=== PATIENT | female | born 1960 | race Caucasian/White ===

== ENCOUNTER 2023-12-11 08:25 | Outpatient (OUT) | payer OTHER, SELFPAY ==
--- NOTE | 2023-12-11 09:01 | MM_ITS ---
Patient Name: ARIANNE BRITT MR#: [id number] : 1960 Exam Date: 12/11/2023 Ordering Doctor: DR NICOLE GANT RADIOLOGY REPORT PROCEDURE: MM TOMOSYNTHESIS SCREENING BI COMPARISON: MG MAMM SCREEN BERTA W CAD, 05/19/2019. MG MAMM SCREEN 3D BERTA CAD, 08/11/2022. INDICATIONS: Screening Calculator Name NCI Breast Cancer Risk Assessment Tool 5 Year Breast Cancer Risk 3.60% Lifetime Breast Cancer Risk 14.10% Personal Breast Cancer No Personal Ovarian Cancer No Treatments None Family Cancers Mother with breast cancer at age 60. LOCATION: [facility] BREAST COMPOSITION: The breasts are heterogeneously dense,which may obscure small masses. FINDINGS: DIAGNOSTIC CATEGORY 2--BENIGN FINDING. NO CHANGE FROM COMPARISON. Scattered benign-appearing nodules are present. Scattered benign-appearing calcifications are present. Scattered benign-appearing lymph nodes are present. RIGHT BREAST: No significant suspicious finding. LEFT BREAST: No significant suspicious finding. RECOMMENDATIONS: ROUTINE MAMMOGRAM AND CLINICAL EVALUATION IN 12 MONTHS. PLEASE NOTE: A NORMAL MAMMOGRAM DOES NOT EXCLUDE THE POSSIBILITY OF BREAST CANCER. A CLINICALLY SUSPICIOUS PALPABLE LUMP SHOULD BE BIOPSIED. Dictated by: Yonathan Little MD on 12/11/2023 at 10:52 Approved by: Yonathan Little MD on 12/11/2023 at 10:54
== END 2023-12-11 08:26 | disposition home or self-care (01) ==
LOC: MAMMO 08:25
PROVIDERS: PCP Family Medicine; Visit Provider Family Medicine
DX: Z12.31 Encounter for screening mammogram for malignant neoplasm of breast (principal); Z80.3 Family history of malignant neoplasm of breast
CPT/HCPCS: 77063; 77067

== ENCOUNTER 2025-03-01 09:29 | Outpatient (OUT) | payer MEDICARE, OTHER, SELFPAY ==
--- OUTSIDE RECORDS SUMMARY | 2025-02-17 23:59 | XMS_ITS | Continuity of Care Document ---
Author Organization [facility] Address Unknown Care Team Providers Care Barrel Raiser Name Role Phone NICOLE GANT Primary Care Physician [phone] Encounter FT_FIN [id number] Date(s): 02/17/25 - 02/17/[address] [address]- Discharge Disposition: Home (Routine DC) Attending Physician: Abel Dunaway MD Admitting Physician: Abel Dunaway MD Referring Physician: NONE, XXXX Encounter Type: Outpatient Allergies, Adverse Reactions, Alerts No Known Allergies Assessment and Plan Future Appointments Appointment Date:08/03/2025 01:30:00 PM Scheduled Provider:Abel Dunaway MD Location:[facility]Cardiology Clinic Appointment Type:Cardiology Follow Up (FT) Medications Metoprolol tartrate 50 mg Tab 50 mg = 1 tab(s), Oral, BID, # 60 tab(s), Refills(s) 0, Pharmacy: [facility]/pharmacy #[id number], 176, cm, 10/21/24 11:05:00 EDT, Height/Length Dosing, 75.4, kg, 10/21/24 11:05:00 EDT, Weight Dosing Start Date: 01/26/25 Status: Ordered Quantity: 60.0 Unit: tab(s) Repeat number: 1 Indications: Unspecified atrial fibrillation; Problem List Condition Confirmation Course Effective Dates Status Health St atus Informant Atrial fibrillation (irregular or rapid heart rhythm) Confirmed Active Social History Social History Type Response Smoking Status Never (less than 100 in lifetime) entered on: 02/17/25 Sex Female Sex Representation Female (finding) Patient Care team information Care Team Personnel Name: NICOLE GANT DO Position: FT Physician Member Role: Primary Care Physician Address: [address] [place] [address] Telecom: Care Team Related Persons Name: VIKY JOHNSON Name: VIKY JOHNSON Insurance Providers Guarantor name: Health Plan Information #: 1 Payer: MEDICARE Payer Identifier: [id number] Member Number: [id number] Group Number: [id number] Subscriber Identifier: [id number] Relationship to Subscriber: Self Coverage Type: MEDICARE Coverage Verification Date: 25 Telecom: [phone] Address: [address] [address] [id number] Health Plan Information #: 2 Payer: [employer] Payer Identifier: [id number] Member Number: [id number] Group Number: [id number] Subscriber Identifier: [id number] Relationship to Subscriber: Self Coverage Type: PRIVATE HEALTH INSURANCE Coverage Verification Date: 25 Telecom: Address: [phone] [place] [address]
--- OUTSIDE RECORDS SUMMARY | 2025-02-17 23:59 | XMS_ITS | Continuity of Care Document ---
Author Organization [facility] Address Unknown Care Team Providers Care Gun Striper Name Role Phone NICOLE GANT Primary Care Physician Encounter FT_FIN [id number] Date(s): 02/17/25 - 02/17/[address] [place] [address]- Discharge Disposition: Home (Routine DC) Attending Physician: Abel Dunaway MD Admitting Physician: Abel Dunaway MD Encounter Type: Outpatient Allergies, Adverse Reactions, Alerts No Known Allergies Assessment and Plan Future Appointments Appointment Date:08/03/2025 01:30:00 PM Scheduled Provider:Abel Dunaway MD Location:FT.Cardiology Clinic Appointment Type:Cardiology Follow Up (FT) Medications Metoprolol tartrate 50 mg Tab 50 mg = 1 tab(s), Oral, BID, # 60 tab(s), Refills(s) 0, Pharmacy: [facility]/pharmacy #[id number], 176, cm, 10/21/24 11:05:00 EDT, Height/Length [...] Role: Primary Care Physician Address: [address] [place] [address] Telecom: Care Team Related Persons Name: VIKY JOHNSON Name: VIKY JOHNSON Insurance Providers Guarantor name: Health Plan Information #: 1 Payer: MEDICARE Payer Identifier: [id number] Member Number: [id number] Group Number: [id number] Subscriber Identifier: [id number] Relationship to Subscriber: Self Coverage Type: MEDICARE Coverage Verification Date: 25 Telecom: [phone] Address: [address] [address] [phone] [place], [place] [address] Health Plan Information #: 2 Payer: [employer] Payer Identifier: [id number] Member Number: [id number] Group Number: [id number] Subscriber Identifier: [id number] Relationship to Subscriber: Self Coverage Type: PRIVATE HEALTH INSURANCE Coverage Verification Date: 25 Telecom: Address: [phone] [place] [address]
--- OUTSIDE RECORDS SUMMARY | 2025-03-01 09:35 | XMS_ITS | Encounter Summary ---
Author Organization [employer] Address [facility]-[id number] [address] [place] [address] Care Team Providers Care Ruffling Hemmer Automatic Name Role Phone Homer Youssef DO Primary Care Provider + [phone] Reason for Visit * Reason Comments Med Refill Encounter Details Date Type Department Care Team (Late st Contact Info) Description 09/20/2023 Refill [facility] - Family Medicine [address] [place] [address] Homer Youssef DO [address], [place] [address] Unspecified atrial fibrillation ([facility]) Social History Tobacco Use Types Packs/Day Years Used Date Smoking Tobacco: Never Smokeless Tobacco: Never Alcohol Use Standard Drinks/Week Comments Not Currently 0 (1 standard drink = 0.6 oz pur e alcohol) Social Connection and Isolat ion Panel [NHANES] Answer Date Recorded In a typical week, how many times do you talk on the phone with family, friends, or neighbors? More than three times a week 10/06/2022 How often do you get togethe r with friends or relatives? More than three times a week 10/06/2022 How often do you attend chur ch or adventist services? More than 4 times per year 10/06/2022 Do you belong to any clubs o r organizations such as christianity groups, unions, fraternal or athletic groups, or school groups? Yes 10/06/2022 How often do you attend meet ings of the clubs or organizations you belong to? More than 4 times per year 10/06/2022 Are you , , di vorced, , never , or living with a partner? 10/06/2022 AUDIT-C Answer Date Recorded Q1: How often do you have a drink containing alcohol? Never 10/06/2022 Q2: How many drinks containi ng alcohol do you have on a typical day when you are drinking? Patient does not drink Q3: How often do you have si x or more drinks on one occasion? Never 10/06/2022 Overall Financial Resource Strain (CARDIA) Answe r Date Recorded How hard is it for you to pa y for the very basics like food, housing, medical care, and heating? Not hard at all 10/06/2022 PHQ-2 Answer Date Recorded Total Score 0 10/06/2022 [facility] of Occupat ional Health - Occupational Stress Questionnaire Answer Date Recorded Do you feel stress - tense, restless, nervous, or anxious, or unable to sleep at night because your mind is troubled all the time - these days? Not at all 10/06/2022 Exercise Vital Sign Answer Date Recorde d On average, how many days pe r week do you engage in moderate to strenuous exercise (like a brisk walk)? 4 days 10/06/2022 On average, how many minutes do you engage in exercise at this level? 40 min 10/06/2022 PRAPARE - Transportation Answer Date Re corded In the past 12 months, has l ack of transportation kept you from medical appointments or from getting medications? No 09/27 In the past 12 months, has l ack of transportation kept you from meetings, work, or from getting things needed for daily living? No 10/06/2022 Housing Instability Answer Date Recorde d Are you worried or concerned that in the next two months you may not have stable housing that you own, rent or stay in as a part of a household? No 10/06/2022 Childcare Answer Date Recorded Do problems getting child ca re make it difficult for you to work or study? No 10/06/2022 Employment Answer Date Recorded Do you need help finding a [facility] career center and/or a training program? No 10/06/2022 Hunger Screening Answer Date Recorded Within the past 12 months we worried whether our food would run out before we got money to buy more. Never True 10/06/2022 Within the past 12 months th e food we bought just didn't last and we didn't have money to get more. Never True 10/06/2022 Purpose - Life Answer Date Recorded I have a purpose and direction in my life. Stron gly Agree 10/06/2022 Comments Unknown Sex and Gender Information Value Date Recorded Sex Assigned at Not on file Legal Sex Female 11:48 AM EDT Gender Identity Not on file Sexual Orientation Not on file documented as of this encounter Plan of Treatment Not on file documented as of this encounter Visit Diagnoses Diagnosis Unspecified atrial fibrillation ([facility]) documented in this encounter Additional Health Concerns Assessment Noted Time PHQ-9 Depression Total Score: 0 10/07/19 23 11:08 AM EDT documented as of this encounter Care Teams Ruffling Hemmer Automatic Relationship Specialty Start Date End Date Homer Youssef DO [address], [place] [address] PCP - General Family Medicine 06/26/22 documented as of this encounter
--- OUTSIDE RECORDS SUMMARY | 2025-03-01 09:35 | XMS_ITS | Encounter Summary ---
Author Organization [employer] Address [facility]-[id number] [address] [place] [address] Care Team Providers Care Career Manager Name Role Phone Homer Youssef DO Primary Care Provider + [phone] Reason for Visit * Reason Comments Med Refill Encounter Details Date Type Department Care Team (Late st Contact Info) Description 12/30/2022 Refill [facility] - Family Medicine [address] [place] [address] Homer Youssef DO [address], [place] [address] Unspecified atrial fibrillation ([facility]) Social History Tobacco Use Types Packs/Day Years [...] often do you attend chur ch or church services? More than 4 times per year 10/06/2022 Do you belong to any clubs o r organizations such as zoroastrianism groups, unions, fraternal or athletic groups, or [...] Answer Date Recorded Total Score 0 10/06/2022 [facility] of Occupat ional Health - Occupational Stress [...] Recorded Do you need help finding a [facility] career center and/or a training program? No [...] encounter Visit Diagnoses Diagnosis Unspecified atrial fibrillation ([facility]) documented in this encounter Additional Health Concerns Assessment Noted Time PHQ-9 Depression Total Score: 0 10/07/19 23 11:08 AM EDT documented as of this encounter Care Teams Career Manager Relationship Specialty Start Date End Date Homer Youssef DO [address], [place] [address] PCP - General Family Medicine 06/26/22 documented as of this encounter
--- OUTSIDE RECORDS SUMMARY | 2025-03-01 09:35 | XMS_ITS | Clinical Summary ---
Author Organization [facility] Address [address] [place] [address] Care Team Providers Care Container Coordinator Name Role Phone Unavailable Primary Care Provider Unavailabl e Allergies Active Allergy Reactions Criticality Noted Date Comments Codeine Vomiting High 01/26/2012 Medications MULTI-VITAMIN ORAL Take by mouth once daily. Active Social History Tobacco Use Types Packs/Day Years Used Date Smoking Tobacco: Never Assessed Comments Unknown Sex and Gender Information Value Date Recorded Sex Assigned at Not on file Legal Sex Female 10:16 AM EST Gender Identity Not on file Sexual Orientation Not on file Last Filed Vital Signs Vital Sign Reading Time Taken Comments Blood Pressure 151/85 03/08/2012 8:05 AM EDT Pulse 85 03/08/2012 8:05 AM EDT Temperature 36.2 C (97.1 F) 03/08/2012 8:05 AM EDT Respiratory Rate 20 03/08/2012 8:05 AM EDT Oxygen Saturation 99% 03/08/2012 8:05 AM EDT Inhaled Oxygen Concentration - - Weight 77.8 kg (171 lb 8 oz) 03/08/2012 8:05 AM EDT Height 175.3 cm (5' 9 ) 03/08/2012 8:05 AM EDT Body Mass Index 25.33 03/08/2012 8:05 AM EDT Plan of Treatment Upcoming Encounters Date Type Department Care Team (Late st Contact Info) Description 05/05/2025 12:00 PM EST Office Visit Cardiology [address] [place] [address] Alonso Hodges MD [address] [place] [address] [place] [address] Dx: A fib Health Maintenance Due Date Last Done Comments Anxiety Screening 1977 Depression Screening 1977 HIV Screening 1977 Hepatitis C Screening 1977 DTaP,Tdap,Td Vaccine (1 - Tdap) [address] Colonography 2004 Cologuard (FIT-DNA) 2004 Colonoscopy 2004 Colorectal Cancer Screening 2004 Fecal Occult Blood 2004 Lipid Screening 2004 Sigmoidoscopy 2004 Pneumococcal Vaccine: 50+ (1 of 1 - PCV) 2009 Shingrix Vaccine (1 of 2) 2009 Diabetes Screening 01/25/2015 01/26/2012 Bone Density Screening 2024 Advance Directive Discussion 06/29/2024 Influenza Vaccine (#1) 2025 RSV Vaccine (1 - 1-dose 75+ series) 2034 Procedures Procedure Name Priority Date/Time Associated Diagnosis Comments COMPREHENSIVE METABOLIC PANEL 01/26/2012 10:40 AM EDT from Last 3 Months or Most Recently Relevant to Health Maintenance Results * (ABNORMAL) COMP METABOLIC PANEL (01/26/2012 10:40 AM EDT) Protein, Total 6.8 6.0 - 8.4 g/dL [facility] Albumin 4.2 3.5 - 5.0 g/dL [facility] Calcium 9.0 8.5 - 10.5 mg/dL [facility] Bilirubin, Total 0.4 0 - 1.5 mg/dL [facility] Alkaline Phosphatase 55 40 - 150 U/L [facility] AST 14 7 - 40 U/L [facility] Glucose 93 65 - 100 mg/dL [facility] BUN 10 8 - 25 mg/dL [facility] Creatinine 0.67(L) 0.7 - 1.4 mg/dL [facility] Sodium 139 132 - 148 mmol/L [facility] Potassium 4.1 3.5 - 5.0 mmol/L [facility] Chloride 106 98 - 110 mmol/L [facility] CO2 26 23 - 32 mmol/L [facility] Anion Gap 7 0 - 15 mmol/L [facility] ALT 14 0 - 45 U/L [facility] eGFR- >60 [facility] eGFR-All Other Races >60 . [facility] Comment: eGFR (Estimated GFR) Units of measure: mL/min/1.73 meters squared eGFR is derived from the reexpressed MDRD Study equation using the following parameters: serum creatinine, age, gender and race. The creatinine assay has been calibrated to be traceable to IDMS. An eGFR <60 mL/min/1.73m2 for >3 months is consistent with chronic kidney disease. Refer to KDOQI guidelines for clinical interpretation. 01/26/2012 10:4 0 AM EDT 01/26/2012 10:45 AM EDT Breezy Thakur MD LABORATORY Final Result [facility] [address] [facility] [place] [address] from Last 3 Months or Most Recently Relevant to Health Maintenance Insurance MEDICARE [facility] MEDICARE SUPPLEMENT
--- OUTSIDE RECORDS SUMMARY | 2025-03-01 09:36 | XMS_ITS | Clinical Summary ---
Author Organization [employer] Address [id number] [address] [place] [address] Care Team Providers Care Cpr Ambulance Driver Name Role Phone LatishaHomer hamm Primary Care Provider [phone] Allergies Active Allergy Reactions Criticality Noted Date Comments Codeine Nausea And Vomiting,Vomiting High 012 Medications multivit-min/ferr ous fumarate (MULTI VITAMIN ORAL) Take by mouth daily. Active aspirin 325 mg tablet Take 1 tablet (325 mg total) by mouth. Active metoprolol tartrate (LOPRESSOR) 50 mg tabletIndications :Paroxysmal atrial fibrillation (CMS-HCC) TAKE 1 TABLET (50 MG TOTAL) BY MOUTH IN THE MORNING AND 1 TABLET (50 MG TOTAL) BEFORE BEDTIME 180 tablet 1 5 Active Active Problems Problem Noted Date Diagnosed Date Paroxysmal atrial fibrillation 10/06/2022 Basal cell carcinoma 10/17/2021 Hx of cone biopsy of cervix 08/28/201909/27 Overview (10/06/2022): 2011 concern for cervical mass on US, MRI CKC done at [facility]. Benign endocervical glands with tunnel clusters. No adenocarcinoma. Pelvic congestion syndrome 06/07/201210/06 Overview (10/06/2022): Right pelvic varicosity. Present at US with doppler 2011 Immunizations Immunization Administration Dates Next Due COVID-19 Vaccine, vector-nr, rS-Ad26, PF, 0.5mL 09/03/2020,08/27/2020 Family History Medical History Relation Name Comments Atrial fibrillation Brother 1 Atrial fibrillation Brother 2 Vasculitis Brother 3 autoimmune Coronary artery disease Father Esophageal cancer Father Breast cancer Mother from necr otizing fasciitis at age 89-possible colon CA Relation Name Status Comments Brother 1 Alive Brother 2 Alive Brother 3 Alive Brother 4 Alive Brother 5 Alive Brother 6 Alive Brother 7 Alive Father Mother Sister Alive Social History Tobacco Use Types Packs/Day Years Used Date Smoking Tobacco: Never Smokeless Tobacco: Never Alcohol Use Standard Drinks/Week Comments Not Currently 0 (1 standard drink = 0.6 oz pur e alcohol) [facility] Utilities Answer Date Recorded In the past 12 months has e electric, gas, oil, or water company threatened to shut off services in your home? No 06/09/2024 Social Connection and Isolat ion Panel [NHANES] Answer Date Recorded In a typical week, how many times do you talk on the phone with family, friends, or neighbors? More than three times a week 10/06/2022 How often do you get togethe r with friends or relatives? More than three times a week 10/06/2022 How often do you attend chur ch or protestant services? More than 4 times per year 10/06/2022 Do you belong to any clubs o r organizations such as mandaen groups, unions, fraternal or athletic groups, or [...] 10/06/2022 PHQ-2 Answer Date Recorded Total Score 1 06/09/2024 [facility] [place] of Occupat ional Health - Occupational Stress [...] Recorded Do you need help finding a [facility] career center and/or a training program? [...] Sign Reading Time Taken Comments Blood Pressure 140/74 06/09/2024 9:32 AM EST Pulse 67 06/09/2024 9:32 AM EST Temperature 36.6 C (97.9 F) 06/09/2024 9:32 AM EST Respiratory Rate 18 06/09/2024 9:32 AM EST Oxygen Saturation 99% 06/09/2024 9:32 AM EST Inhaled Oxygen Concentration - - Weight 75.8 kg (167 lb) 06/09/2024 9:32 AM EST Height 176.5 cm (5' 9.5 ) 06/09/2024 9:32 AM EST Body Mass Index 24.31 06/09/2024 9:32 AM EST Plan of Treatment Health Maintenance Due Date Last Done Comments DTaP,Tdap and Td Vaccines (1 - Tdap) 1978 Zoster (Shingles) Vaccine (1 of 2) 1978 COVID-19 Vaccine (3 - season) 2024 09/03/2020, 08/27/2020 Mammogram 12/10/2024 12/11/2023, 08/11/2022 Colonoscopy 02/27/2025 Postponed from 2004 (Not Indicated) Influenza Vaccine 02/27/2025 Adult BMI Screening 06/09/2025 06/09/2024 Depression Screening 06/09/2025 06/09/2024 Fall Risk Screening 06/09/2025 06/09/2024 Tobacco Screening 06/09/2025 06/09/2024 Medical Devices Not on file Procedures Procedure Name Priority Date/Time Associated Diagnosis Comments MAMMOGRAPHY Routine 12/11/2023 11:27 AM EDT from Last 3 Months or Most Recently Relevant to Health Maintenance Results * HM MAMMOGRAPHY (12/11/2023 11:27 AM EDT) Anatomical Region Laterality Modality Other us Homer Youssef DO HEALTH MAINTENANCE Final Res ult from Last 3 Months or Most Recently Relevant to Health Maintenance Insurance [employer] Care Teams Cpr Ambulance Driver Relationship Specialty Start Date End Date Homer Youssef DO [address] [facility], [place] [address] PCP - General Family Medicine 06/26/22
--- OUTSIDE RECORDS SUMMARY | 2025-03-01 09:36 | XMS_ITS | Encounter Summary ---
Author Organization [facility] Address [id number] [address] [place] [address] Care Team Providers Care Computer Graphics Illustrator Name Role Phone Homer Youssef DO Primary Care Provider + [phone] Encounter Details Date Type Department Care Team (Late st Contact Info) Description 12/15/2023 Orders Only [facility] - Family Medicine [address] [place] [id number] Homer Youssef DO [address], [place] [address] Social History Tobacco Use Types Packs/Day Years [...] often do you attend chur ch or orthodox services? More than 4 times per year 10/06/2022 Do you belong to any clubs o r organizations such as jainism groups, unions, fraternal or athletic groups, or [...] Answer Date Recorded Total Score 0 10/06/2022 [facility] of Occupat ional [facility] - Occupational Stress Questionnaire Answer Date Recorded [...] Recorded Do you need help finding a [facility] career center and/or a training program? No [...] on file documented as of this encounter Procedures Procedure Name Priority Date/Time Associated Diagnosis Comments MAMMOGRAPHY Routine 12/11/2023 11:27 AM EDT documented in this encounter Results * HM MAMMOGRAPHY (12/11/2023 11:27 AM EDT) Anatomical Region Laterality Modality Other us Homer Youssef DO HEALTH MAINTENANCE Final Res ult documented in this encounter Visit Diagnoses Not on filedocumented in this encounter Additional Health Concerns Assessment Noted Time PHQ-9 Depression Total Score: 0 10/07/19 23 11:08 AM EDT documented as of this encounter Care Teams Computer Graphics Illustrator Relationship Specialty Start Date End Date Homer Youssef DO [address] [facility] [place] [address] PCP - General Family Medicine 06/26/22 documented as of this encounter
--- OUTSIDE RECORDS SUMMARY | 2025-03-01 09:36 | XMS_ITS | Encounter Summary ---
Author Organization [employer] Sys tem Address [id number] [address] [place] [address] Care Team Providers Care Tomographic Tech Name Role Phone Domonique Homer Cesilia RENNER Primary Care Provider + [phone] Encounter Details Date Type Department Care Team (Late st Contact Info) Description 03/17/2024 Telephone [facility] - Family Medicine [address] [place] [id number] Malik Pham CMA Social History Tobacco Use Types Packs/Day Years [...] often do you attend chur ch or advent services? More than 4 times per year 10/06/2022 Do you belong to any clubs o r organizations such as sabianist groups, unions, fraternal or athletic groups, or [...] Answer Date Recorded Total Score 0 10/06/2022 [facility] Health - Occupational Stress Questionnaire Answer Date [...] Recorded Do you need help finding a [facility] career center and/or a training program? [...] on file documented as of this encounter Miscellaneous Notes * Telephone Encounter - Malik Pham CMA - 03/17/2024 1:21 PM EDT I called pt to book her wellness documented in this encounter Plan of Treatment Not on file documented as of this encounter Visit Diagnoses Not on filedocumented in this encounter Additional Health Concerns Assessment Noted Time PHQ-9 Depression Total Score: 0 10/07/19 23 11:08 AM EDT documented as of this encounter Care Teams Tomographic Tech Relationship Specialty Start Date End Date Homer Youssef DO [address] [place], [facility] [place] [address] PCP - General Family Medicine 06/26/22 documented as of this encounter
--- OUTSIDE RECORDS SUMMARY | 2025-03-01 09:36 | XMS_ITS | Encounter Summary ---
Author Organization [employer] Sys tem Address [id number] [address] [place] [address] Care Team Providers Care Clam Grower Name Role Phone Homer Youssef DO Primary Care Provider [phone] Encounter Details Date Type Department Care Team (Late st Contact Info) Description 08/11/2022 Orders Only [facility] Internal Medicine - Family Medicine [address] [place] [id number] External, Scanning Provider Social History Tobacco Use Types Packs/Day Years Used Date Smoking Tobacco: Never Assessed Childcare Answer Date Recorded Childcare Unknown 12/08/2018 Employment Answer Date Recorded Employment Unknown 12/08/2018 Comments Unknown Sex and Gender Information Value Date Recorded Sex Assigned at Not on file Legal Sex Female 11:48 AM EDT Gender Identity Not on file Sexual Orientation Not on file documented as of this encounter Plan of Treatment Not on file documented as of this encounter Procedures Procedure Name Priority Date/Time Associated Diagnosis Comments MAMMOGRAPHY Routine 08/11/2022 documented in this encounter Results * MAMMOGRAPHY (08/11/2022) Anatomical Region Laterality Modality Other us Scanning Provider External HEALTH MAINTENANCE Fi nal Result documented in this encounter Visit Diagnoses Not on filedocumented in this encounter Care Teams Clam Grower Relationship Specialty Start Date End Date Homer Youssef DO [address], [place] [address] PCP - General Family Medicine 06/26/22 documented as of this encounter
--- NOTE | 2025-03-01 09:40 | MM_ITS ---
Patient Name: ARIANNE BRITT MR#: [id number] : 1960 Exam Date: 03/01/2025 Ordering Doctor: DR NICOLE GANT RADIOLOGY REPORT PROCEDURE: MM TOMOSYNTHESIS SCREENING BI COMPARISON: MM TOMOSYNTHESIS SCREENING BI, 12/11/2023. MG MAMM SCREEN 3D BERTA CAD, 08/11/2022. MG MAMM SCREEN BERTA W CAD, 05/19/2019. MG MAMM BERTA SCRN W CAD DIG, 07/14/2014. INDICATIONS: screening Calculator Name NCI Breast Cancer Risk Assessment Tool 5 Year Breast Cancer Risk 3.70% Lifetime Breast Cancer Risk 13.60% Personal Breast Cancer No Personal Ovarian Cancer No Treatments None Family Cancers Mother with breast cancer at age 60. LOCATION: [facility] BREAST COMPOSITION: The breasts are heterogeneously dense, which may obscure small masses. FINDINGS: RIGHT BREAST: No significant suspicious finding. Benign-appearing calcifications are present. LEFT BREAST: No significant suspicious finding. Benign-appearing calcifications are present. Benign-appearing lymph nodes are noted along the chest wall. DIAGNOSTIC CATEGORY 2--BENIGN FINDING. NO CHANGE FROM COMPARISON. RECOMMENDATIONS: ROUTINE MAMMOGRAM AND CLINICAL EVALUATION IN 12 MONTHS. Dictated by: Raudel Piña MD on 03/01/2025 at 15:38 Approved by: Raudel Piña MD on 03/01/2025 at 15:41
--- OUTSIDE RECORDS SUMMARY | 2025-03-01 10:42 | XMS_ITS | CCD ---
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 Role Phone ALFREDA, DR HOMER Lomas Consulting Unavailable FURLONG, DR HOMER Lomas Attending Unavailable FURLONG, DR HOMER Lomas Admitting Unavailable FURLONG, DR HOMER Lomas Primary Care Unavailable SUPPLY, DR CATHY Rose Consulting Unavailable FURLONG, HOMER Lomas Attending Unavailable FURLONG, HOMER Lomas Referring Unavailable FURLONG, HOMER Lomas Primary Care Unavailable FURLONG, HOMER Lomas Referring Unavailable FURLONG, HOMER Lomas Primary Care Unavailable Furlong Homer RENNER Primary Care Provider HOMER YOUSSEF Primary Care Physician REFERRAL, SELF Referring Unavailable Cunningham, Abel W Admitting Unavailable Cunningham, Abel W Attending Unavailable Haroon, Alla Admitting Unavailable Haroon, Alla Attending Unavailable Haroon, Alla Referring Unavailable Cunningham, Abel W Admitting Unavailable Cunningham, Abel W Attending Unavailable NONE, XXXX Referring Unavailable Cunningham, Abel W Admitting Unavailable Cunningham, Abel W Attending Unavailable Allergies Allergy Classification Reported Allergen(s) Allergy Type Date of Onset Reaction(s) Facility (6 sources) Codeine; Translations: [CODEINE] Drug Allergy 2 Nausea And Vomiting, Vomiting [facility] Medications Current Medications Medication Drug Class(es) Dates Sig (Normalized) Sig (Original) aspirin 325 mg oral capsule (5 sources) Platelet Aggregation Inhibitor, Nonsteroidal Anti-inflammatory Drug Start: 10-21-2024 aspirin 325 mg oral capsule Refills(s) 0 Start Date: 10/21/24 Status: Ordered Repeat number: 1 aspirin 325 mg t ablet Take 1 tablet (325 mg total) by mouth. Active metoprolol tartrate 50 mg oral tablet (7 sources) beta-Adrenergic Kaleb Start: 09-09-2024 take 1 tablet by mouth in the morning, then take 1 tablet by mouth at bedtime metoprolol tartrate (LOPRESSOR) 50 mg tablet Indications: Paroxysmal atrial fibrillation (CMS-HCC) TAKE 1 TABLET (50 MG TOTAL) BY MOUTH IN THE MORNING AND 1 TABLET (50 MG TOTAL) BEFORE BEDTIME 180 tablet 1 09/09/2024 Active Start: 12-30-2022 End: 09-09-2024 take 1 tablet by mouth in the morning, then take 1 tablet by mouth at bedtime metoprolol tartrate (LOPRESSOR) 50 mg tablet Indications: Paroxysmal atrial fibrillation (CMS-HCC) TAKE 1 TABLET (50 MG TOTAL) BY MOUTH IN THE MORNING AND 1 TABLET (50 MG TOTAL) BEFORE BEDTIME 180 tablet 1 03/17/2024 09/09/2024 Discontinued multivit-min/ferrous fumarat e (MULTI VITAMIN ORAL) (4 sources) multivit-min/marcellus khris fumarate (MULTI VITAMIN ORAL) Take by mouth daily. Active multivit-min/marcellus khris fumarate (MULTI VITAMIN ORAL) Take by mouth daily. 0 Active Problems Active Problems Problem Classification Problem Date Documented Date Episodic/Chronic Cardiac dysrhythmias (9 sources) Paroxysmal atrial fibrillation; Translations: [Paroxysmal atrial fibrillation] Onset: 10-06-2022 09-18-2023 Chronic Essential hypertension (1 source) Essential hypertension; Translations: [Essential (primary) hypertension] Onset: 10-21-2024 Chronic Other screening for suspected conditions (not mental disorders or infectious disease) (7 sources) Encounter for screening mammogram for malignant neoplasm of breast; Translations: [Encounter for screening for cardiovascular disorders] Onset: 08-11-2022 Episodic Other skin disorders (2 sources) Nonscarring hair loss, unspecified; Translations: [Nonscarring hair loss, unspecified] Onset: 06-09-2024 Episodic Other skin disorders (1 source) Loss of hair; Translations: [Nonscarring hair loss, unspecified] 06-09-2024 Episodic Residual codes; unclassified (1 source) Family history of malignant neoplasm of breast; Translations: [FAMILY HX MALIG NEOPLASM OF BREAST] Onset: 08-15-2022 Episodic Screening and history of mental health and substance abuse codes (2 sources) Encounter for screening for depression; Translations: [Patient encounter status] Onset: 12-12-2024 12-12-2024 Episodic Unclassified (1 source) Annual Exam Onset: 06-09-2024 Past or Other Problems Problem Classification Problem Date Documented Date Episodic/Chronic Mood disorders (4 sources) Mood disorders Onset: 10-06-2022 Resolved: 06-09-2024 10-06-2022 Other female genital disorders (4 sources) Pelvic congestion syndrome; Translations: [Other specified conditions associated with female genital organs and menstrual cycle] Onset: 06-07-2012 10-06-2022 Episodic Other non-epithelial cancer of skin (4 sources) Basal cell carcinoma of skin; Translations: [Basal cell carcinoma of skin, unspecified] Onset: 10-17-2021 10-06-2022 Episodic Residual codes; unclassified (4 sources) History of cervical conization; Translations: [Other specified postprocedural states] Onset: 08-28-2019 10-06-2022 Episodic Results Test Name Value Interpretation Reference Range Facility Heart and Vascular Office/Cl inic Noteon 02-17-2025 Heart and Vascular Office/Clinic Note Heart and Vascular Office/Clinic Note Chief Complaint 3 month F/U History of Present Illness Patient is a 64 year old female here to follow up after 3 months. Patient states she is doing well. She states she stopped the Bystolic due to going in and out of afib more often. She went back to the metoprolol tartrate BID and sometimes a half tablet if needed for breakthrough afib. She could switch to metoprolol long acting, in the future she could also start Tikosyn. Patient states she feels the bigeminy beats sometimes. Review of Systems PHQ Score Initial Depression Screen Score: 0 SCORE ROS - Provider Constitutional: no fever, no chills, no sweats, no weakness Respiratory: no shortness of breath, no cough Cardiovascular: no chest pain Neuro: no dizziness. no loss of consciousness Physical Exam Vitals & Measurements HR: 61(Peripheral) RR: 18 BP: 123/67 SpO2: 97% HT: 69 in HT: 176 cm WT: 75.2 kg WT: 165.787 lb BMI: 24.28 General: alert, no acute distress Neck: Supple, noJVD nocarotid bruit Cardiovascular: regular rate and rhythm, no murmur normal peripheral perfusion Respiratory: Lungs CTAB, respirations non labored Extremities: no edema left lower extremity. no edema right lower extremity Neurological: oriented x 4, LOC appropriate for age, speech normal Skin: Warm, dry, intact- no rash or concerning lesions Cardiac Diagnostics (02/05/2025 Holter Monitor) FINDINGS: 1. Predominant rhythm was sinus bradycardia/sinus rhythm. 2. Minimum heart rate 44 beats per minute, average heart rate 64 beats per minute, maximum heart rate 88 beats per minute. 3. No patient events with symptoms and baseline. 4. No secondary arrhythmia detected. 5. Total supraventricular ectopics 188 beats representing 0.24% couplets, trigeminy in two runs lasting 3 to 6 beats with a heart rate up to 108. 6. Total ventricular ectopics 124 beats per minute representing 0.16 % bigeminy, quadrigeminy. 7. NM interval 0.18 second, QRS 0.10 second, QT 0.40 second at heart rate of 44 beats per minute. [1] Assessment/Plan Atrial fibrillation (I48.91: Unspecified atrial fibrillation) Patient will continue metoprolol tartrate 50mg BID. She will take an extra 1/2 tablet if needed for breakthrough afib. 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 Patient will get a chest x-ray today, she will have a 24 hour Holter monitor before her next appointment and an EKG at the next appointment. She will follow up in 6 months or sooner if needed. Zaheer Khan personally transcribed this note for on 02/17/25 at 1059. Follow-up No qualifying data available Problem List/Past Medical History Ongoing Atrial fibrillation (irregular or rapid heart rhythm) Historical No qualifying data Medications Metoprolol tartrate 50 mg Tab, 50 mg= 1 tab(s), Oral, BID Allergies No Known Allergies Social History Alcohol Past. Beer, Liquor. 1-2 times per month., 10/18/2024 Substance Abuse Never., 10/18/2024 Tobacco Never (less than 100 in lifetime) Tobacco Use:., 02/17/2025 Family History Atrial fibrillation: Father, Sister and Brother. [1] Holter Monitor; Sy Parsons MD 02/05/2025 13:11 EDT Normal [facility] Comment on above: Result Comment: Elec tronically Signed By: Emelyn CANTU, Abel W\.br\Date and Time Signed: 02/17/25 12:19 EDT\.br\Electronically Co-Signed By: Danika Aranda\.br\Date and Time Co-Signed: 02/17/25 10:59 EDT XR Chest 2 Viewson XR Chest 2 Views Exam Date/Time: 02/17/2025 11:28 EDT Reason for Exam: atrial fibrillation;Other (please specify) Report IMPRESSION: NO EVIDENCE OF ACTIVE CARDIOPULMONARY DISEASE. BORDERLINE CARDIOMEGALY. EXAM: XR Chest 2 Views DATE: 02/17/2025 11:16 AM CLINICAL HISTORY: atrial fibrillation. COMPARISON: None available. TECHNIQUE: Upright PA and lateral radiographs of the chest were obtained. FINDINGS: The heart is borderline enlarged. There is no significant pulmonary infiltrate, pleural effusion, vascular congestion, pneumothorax, or other findings of concern identified. Ordering Provider: Abel Dunaway FINAL REPORT Dictated: 02/17/2025 5:41 pm Kj Urbina MD Signed (Electronic Signature): 02/17/2025 5:41 pm Signed by: Kj Urbina MD Transcribed by: LILLY Technologist: MILO [facility] Holter Monitoron 02-06-2025 Holter Monitor Holter Monitor HOLTER MONITOR DATES OF STUDY: 01/27/2025 to 01/28/2025 INDICATION: Atrial fibrillation TOTAL TEST DURATION: One day FINDINGS: 1. Predominant rhythm was sinus bradycardia/sinus rhythm. 2. Minimum heart rate 44 beats per minute, average heart rate 64 beats per minute, maximum heart rate 88 beats per minute. 3. No patient events with symptoms and baseline. 4. No secondary arrhythmia detected. 5. Total supraventricular ectopics 188 beats representing 0.24% couplets, trigeminy in two runs lasting 3 to 6 beats with a heart rate up to 108. 6. Total ventricular ectopics 124 beats per minute representing 0.16 % bigeminy, quadrigeminy. 7. NM interval 0.18 second, QRS 0.10 second, QT 0.40 second at heart rate of 44 beats per minute. READ BY: angel Naqvi Dictated: 02/05/2025 [id number] Transcribed: 02/06/2025 [facility] Comment on above: Result Comment: Elec tronically Signed By: Todd Parsons MDmoud\.haleigh\Date and Time Signed: 02/06/25 13:30 EDT Heart and Vascular Office/Cl inic Noteon 10-21-2024 Heart and Vascular Office/Clinic Note Heart and Vascular Office/Clinic Note Chief Complaint New patient; AFIB History of Present Illness Marlene Roque, is a 64 years old female patient present to the clinic to [facility] hospital care with vascular to F/U on A.Fib. She remains on aspirin and metoprolol for A.fib management. 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 SOB, palpitation, chest tightness and edema to bilateral lower and upper extremities. Review of Systems Constitutional: fever:no, chills:no, sweats:no, weakness:no, body aches:no, MENDOZA:no Respiratory: chest congestion/tightness: no, shortness of breath: no, cough:no, wheezing:no, orthopnea:no Cardiovascular: chest pain:no, palpitations:no, edema to LEs:no Physical Exam Vitals & Measurements HR: 54(Peripheral) RR: 18 BP: 186/90 SpO2: 99% HT: 69 in HT: 176 cm WT: 166.228 lb WT: 75.4 kg BMI: 24.34 General: Well developed, well nourished, in no acute distress Eyes: not assessed Ears: not assessed Nose: not addressed Mouth: not assessed Neck: not assessed Lungs: clear to auscultation throughout, no wheezing, no rales. No respiratory distress Cardio: regular rate and rhythm, no murmur Abdomen: Soft, non-distended, non-tender Musculoskeletal: No deformity or scoliosis noted. Normal range of motion. Joints normal. No erythema, edema, effusion, or ecchymosis Extremity: No clubbing, cyanosis, edema, or deformity, with normal ROM in both upper and lower bilateral extremities Neurologic: not assessed Skin: not assessed Mental Status: alert and oriented x3, normal mood and affect given age Assessment/Plan 1. Atrial fibrillation (I48.91: Unspecified atrial fibrillation) The patient needs to monitor at home 1 nurse practitioner here and she is seen for evaluation hide which she is known to have. She is taking metoprolol tartrate twice daily and I suggested that we may want switch her medication as this agent is short acting and you need to take it ideally 3 times a day and even then you are not ideally covered. I have suggested we switch her to Bystolic 5 mg at bedtime and have flecainide to take as needed and generated as 100 mg 3 times a day if atrial fibrillation sustained. If the atrial fibrillation continues or she requires cardioversion she may need to go on a maintenance of either flecainide or if that is ineffective we could use Tikosyn. 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 Ordered: EKG Reading [place]fee [id number] Holter Monitor 24 hr 2. Hypertension (I10: Essential (primary) hypertension) Medical management on her blood pressures have been controlled she will monitor herself. DASH diet and exercise regimen encouraged. Portions of this record have been created with voice recognition software. Occasional wrong-word or ???[id number]??? substitutions may have occurred due to the inherent limitations of voice recognition software. Follow-up With When Contact Information Abel Dunaway MD, CAR Within 3 months [address] [place] [address]- Additional Instructions: Patient Education Atrial Fibrillation, [id number]-fz-[id number] Problem List/Past Medical History Ongoing No qualifying data Historical No qualifying data Medications aspirin 325 mg oral capsule Allergies No Known Allergies Social History Alcohol Past. Beer, Liquor. 1-2 times per month., 10/18/2024 Substance Abuse Never., 10/18/2024 Tobacco Never (less than 100 in lifetime) Tobacco Use:., 10/21/2024 Family History Atrial fibrillation: Father, Sister and Brother. Normal [facility] Comment on above: Result Comment: Elec tronically Signed By: Abel Dunaway MD\.br\Date and Time Signed: 10/21/24 11:55 EDT\.br\Electronically Co-Signed By: Alla Rodriguez\.br\Date and Time Co-Signed: 10/21/24 11:37 EDT COMPREHENSIVE METABOLIC PANE Abel 06-09-2024 Albumin [Mass/Vol] 3.8 g/dL Normal 3.2-5.3 [facility] Comment on above: Performed By: #### Mirtha QUEVEDO, 23832-4, TSHR #### [facility] ([id number]) [address], [address] [place] [address] ALP [Catalytic activity/Vol] 77 U/L Normal 39-130 [facility] Comment on above: Performed By: #### Mirtha QUEVEDO 02432-4, TSHR #### [facility] ([id number]) [address], [address] [place] [address] ALT [Catalytic activity/Vol] 21 U/L Normal 0-31 [facility] Comment on above: Performed By: #### Mirtha QUEVEDO, 73400-3, TSHR #### [facility] ([id number]) [address], [address] [place] [address] Anion gap [Moles/Vol] 7 mmol/L Normal 5-15 [facility] Comment on above: Performed By: #### Mirtha QUEVEDO, 70957-9, TSHR #### [facility] ([id number]) [address], [address] [place] [address] AST [Catalytic activity/Vol] 21 U/L Normal 0-41 [facility] Comment on above: Performed By: #### Mirtha QUEVEDO, 45610-9, TSHR #### [facility] ([id number]) [address], [address] [place] [address] Bilirubin [Mass/Vol] 0.7 mg/dL Normal 0.3-1.2 [facility] Comment on above: Performed By: #### Mirtha QUEVEDO, 35941-6, TSHR #### [facility] ([id number]) [address], [address] [place] [address] Calcium [Mass/Vol] 9.1 mg/dL Normal 8.5-10.5 [facility] Comment on above: Performed By: #### Mirtha QUEVEDO 97795-4, TSHR #### [facility] ([id number]) [address], [address] [place] [address] Chloride [Moles/Vol] 105 mmol/L Normal 98-109 [facility] Comment on above: Performed By: #### C EMY, 83769-0, TSHR #### [facility] ([id number]) [address], [address] [place] [address] CO2 [Moles/Vol] 28 mmol/L Normal 22-32 [facility] Comment on above: Performed By: #### C EMY 01201-9, TSHR #### [facility] ([id number]) [address], [address] [place] [address] Creatinine [Mass/Vol] 0.66 mg/dL Normal 0.40-1.00 [facility] Comment on above: Result Comment: METH OD TRACEABLE TO IDMS STANDARD Performed By: #### C EMY, 99238-9, TSHR #### [facility] ([id number]) [address], [facility] [address] [place] [address] eGFR (CKD-EPI) NON-RACE DEPENDENT >90 Normal >59 [facility] Comment on above: Result Comment: Reported eGFR is based on the CKD-EPI 1 equation that does not use a race coefficient. Performed By: #### C EMY 43904-1, TSHR #### [facility] ([id number]) [address], [address] [place] [address] Glucose [Mass/Vol] 81 mg/dL Normal 65-99 [facility] Comment on above: Performed By: #### C EMY 26958-6, TSHR #### [facility] ([id number]) [address] [address] [place] [address] Potassium [Moles/Vol] 4.7 mmol/L Normal 3.5-5.0 [facility] Comment on above: Performed By: #### C Edison QUEVEDO-1, TSHR #### [facility] ([id number]) [address], [facility] [address] [place] [address] Protein [Mass/Vol] 6.7 g/dL Normal 6.0-8.0 [facility] Comment on above: Performed By: #### Mirtha QUEVEDO, 17625-5, TSHR #### [facility] ([id number]) [address], [facility] [address] [place] [address] Sodium [Moles/Vol] 140 mmol/L Normal 134-146 [facility] Comment on above: Performed By: #### Mirtha QUEVEDO, 19134-7, TSHR #### [facility] ([id number]) [address], [facility] [address] [place] [address] Urea nitrogen [Mass/Vol] 14 mg/dL Normal 5-27 [facility] Comment on above: Performed By: #### Mirtha QUEVEDO, 06593-2, TSHR #### [facility] ([id number]) [address], [facility] [address] [place] [address] Lipid 1996 panelon 4 Cholesterol [Mass/Vol] 205 mg/dL High 150-200 [facility] Comment on above: Performed By: #### Mirtha QUEVEDO, 11820-5, TSHR #### [facility] ([id number]) [address] [address] Cholesterol in HDL [Mass/Vol] 46 mg/dL Normal >39 [facility] Comment on above: Result Comment: HDL <40 mg/dL - High Risk HDL > or = 40mg/dL- Desirable HDL >60 mg/dL - Negative Risk Performed By: #### Mirtha QUEVEDO, 78090-9, TSHR #### [facility] ([id number]) [address], [facility] [address] [place] [address] Cholesterol in LDL [Mass/Vol] 129 mg/dL Normal <130 [facility] Comment on above: Result Comment: LDL <100 mg/dL - Desirable LDL >160 mg/dL - High Risk Performed By: #### Mirtha QUEVEDO, 11317-2, TSHR #### [facility] ([id number]) [address] [address] Cholesterol in VLDL [Mass/Vol] 30 mg/dL Normal 0-30 [facility] Comment on above: Performed By: #### Mirtha QUEVEDO, 25164-8, TSHR #### [facility] ([id number]) [address], [address] [address] CHOLESTEROL:HDL 4.5 Normal 1.0-5.0 [facility] Comment on above: Performed By: #### Mirtha QUEVEDO, 75185-5, TSHR #### [facility] ([id number]) [address], [address] [address] Triglyceride [Mass/Vol] 148 mg/dL Normal 27-150 [facility] Comment on above: Performed By: #### Mirtha QUEVEDO, 94874-8, TSHR #### [facility] ([id number]) [address], [address] [address] TSH WITH REFLEXon 06-09-2024 TSH 2.65 uIU/mL Normal 0.49-4.67 [facility] Comment on above: Result Comment: NEW REFERENCE RANGE FOR PEDIATRIC PATIENTS Performed By: #### Mirtha QUEVEDO, 41615-7, TSHR #### [facility] ([id number]) [address], [address] [place] [address] MG MAMM SCREEN 3D BERTA CADon 08-11-2022 MG MAMM SCREEN 3D BERTA CAD Patient: ARIANNE BRITT Exam Date: 08/11/2022 : 1960 Gender:F Ordering : DR HOMER YOUSSEF Admission #: [id number] Family : Order #: [id number] CLICK HERE TO VIEW EXAM RADIOLOGY REPORT PROCEDURE: MAMMOGRAM SCREENING 3D BILATERAL CAD COMPARISON: MG MAMM SCREEN BERTA W CAD, 12/02/2017. MG MAMM SCREEN BERTA W CAD, 05/19/2019. INDICATIONS: Screening mammography Calculator Name NCI Breast Cancer Risk Assessment Tool 5 Year Breast Cancer Risk 3.60% Lifetime Breast Cancer Risk 14.50% Personal Breast Cancer No Personal Ovarian Cancer No Treatments None Family Cancers Mother with breast cancer at age 60. LOCATION: [facility] BREAST COMPOSITION: Heterogeneously dense,which may obscure small masses. FINDINGS: DIAGNOSTIC CATEGORY 2--BENIGN FINDING. NO CHANGE FROM COMPARISON. Scattered benign-appearing nodules are present. Scattered benign-appearing calcifications are present. Scattered benign-appearing lymph nodes are present. RIGHT BREAST: No significant suspicious finding. LEFT BREAST: No significant suspicious finding. Micro clip marker 3 o'clock left breast, stable RECOMMENDATIONS: ROUTINE MAMMOGRAM AND CLINICAL EVALUATION IN 12 MONTHS. PLEASE NOTE: A NORMAL MAMMOGRAM DOES NOT EXCLUDE THE POSSIBILITY OF BREAST CANCER. A CLINICALLY SUSPICIOUS PALPABLE LUMP SHOULD BE BIOPSIED. Dictated by: Cathy Little MD on 08/11/2022 at 13:57 Approved by: Cathy Little MD on 08/11/2022 at 14:08 Normal [facility] COMPREHENSIVE METABOLIC PANE Abel 07-18-2021 Albumin [Mass/Vol] 4.2 g/dL Normal 3.6-5.1 [facility] Comment on above: Performed By: #### 1 5499, 4706 #### [facility] [address], [address] [place] [id number] [employer] In[employer]: Dutch Hi MD Albumin/Globulin [Mass ratio] 1.9 {ratio} Normal 1.0-2.5 [facility] Comment on above: Performed By: #### 1 9656, 3167 #### [facility] [address], [address] [place] [id number] [employer] Instructor: Dutch Hi MD ALP [Catalytic activity/Vol] 51 U/L Normal 37-153 [facility] Comment on above: Performed By: #### 1 0231, 7600 #### [facility] of [address], [address] [place] [address] [employer] Instructor: Dutch Hi MD ALT [Catalytic activity/Vol] 16 U/L Normal 6-29 [facility] Comment on above: Performed By: #### 1 0231, 7600 #### [facility] of [address], [address] [place] [address] [employer] Instructor: Dutch Hi MD AST [Catalytic activity/Vol] 17 U/L Normal 10-35 [facility] Comment on above: Performed By: #### 1 0231, 7600 #### [facility] of [address], [address] [place] [address] [employer] Instructor: Dutch Hi MD Bilirubin [Mass/Vol] 0.6 mg/dL Normal 0.2-1.2 [facility] Comment on above: Performed By: #### 1 0231, 7600 #### [facility] of [address], [address] [place] [address] [employer] Instructor: Dutch Hi MD BUN/CREATININE RATIO NOT APPLICABLE Normal 6-22 [facility] Comment on above: Performed By: #### 1 0231, 7600 #### [facility] of [address], [address] [place] [address] [employer] Instructor: Dutch Hi MD Calcium [Mass/Vol] 9.5 mg/dL Normal 8.6-10.4 [facility] Comment on above: Performed By: #### 1 0231, 7600 #### [facility] of [place] [address] [employer] Instructor: Dutch Hi MD Chloride [Moles/Vol] 105 mmol/L Normal 98-110 [facility] Comment on above: Performed By: #### 1 0231, 7600 #### [facility] of [address], [address] [place] [address] [employer] Instructor: Dutch Hi MD CO2 [Moles/Vol] 28 mmol/L Normal 20-32 [facility] Comment on above: Performed By: #### 1 023, 7600 #### [facility] [place] [address] [employer] Instructor: Dutch Hi MD Creatinine [Mass/Vol] 0.70 mg/dL Normal 0.50-0.99 [facility] Comment on above: Result Comment: For patients >49 years of age, the reference limit for Creatinine is approximately 13% higher for people identified as -[place]kin[place]. Performed By: #### 1 023, 7600 #### [facility] [place] [address] [employer] Hvac R Instructor: Dutch Hi MD eGFR NON-AFR. [facility]ONE[facility] 93 mL/min/1.73m2 Normal > OR = 60 [facility] Comment on above: Performed By: #### 1 230, 7600 #### [facility] [place] [address] [employer] Hvac [employer] Instructor: Dutch Hi MD GFR/1.73 sq M.predicted among blacks MDRD (S/P/Bld) [Vol rate/Area] 108 mL/min/{1.73_m2} Normal > OR = 60 [facility] Comment on above: Performed By: #### 1 023, 7600 #### [facility] [place] [address] [employer] H[employer] Instructor: Dutch Hi MD Globulin (S) [Mass/Vol] 2.2 g/dL Normal 1.9-3.7 [facility] Comment on above: Performed By: #### 1 023, 7600 #### [facility] [place] [address] [employer] Hvac [employer] Instructor: Dutch Hi MD Glucose [Mass/Vol] 87 mg/dL Normal 65-139 [facility] Comment on above: Result Comment: Non-fasting reference interval Performed By: #### 1 023, 7600 #### [facility] [address] [place] [address] [employer] Hvac [employer] Instructor: Dutch Hi MD Potassium [Moles/Vol] 4.0 mmol/L Normal 3.5-5.3 [facility] Comment on above: Performed By: #### 1 0231, 7600 #### [facility] of [address], [address] [place] [address] [employer] Hvac [employer] Instructor: Dutch Hi MD Protein [Mass/Vol] 6.4 g/dL Normal 6.1-8.1 [facility] Comment on above: Performed By: #### 1 0231, 7600 #### [facility] of [place] [address] [employer] Hvac [employer] Instructor: Dutch Hi MD Sodium [Moles/Vol] 141 mmol/L Normal 135-146 [facility] Comment on above: Performed By: #### 1 0231, 7600 #### [facility] of [address], [address] [place] [address] [employer] Hvac [employer] Instructor: Dutch Hi MD Urea nitrogen [Mass/Vol] 13 mg/dL Normal 7-25 [facility] Comment on above: Performed By: #### 1 0231, 7600 #### [facility] [place] [address] [employer] Hvac [employer] Instructor: Dutch Hi MD LIPID PANEL, [facility] 06-30 0 Cholesterol [Mass/Vol] 236 mg/dL High <200 [facility] Comment on above: Order Comment: FASTI NG:NO FASTING: NO Performed By: #### 1 0231, 7600 #### [facility] of [place] [address] [employer] Hvac [employer] Instructor: Dutch Hi MD Cholesterol in HDL [Mass/Vol] 61 mg/dL Normal > OR = 50 [facility] Comment on above: Order Comment: FASTI NG:NO FASTING: NO Performed By: #### 1 0231, 7600 #### [facility] of [address], [address] [place] [address] [employer] Hvac [employer] Instructor: Dutch Hi MD Cholesterol in LDL [Mass/Vol] 156 mg/dL High [facility] Comment on above: Order Comment: FASTI NG:NO FASTING: NO Result Comment: Refe rence range: <100 Desirable range <100 mg/dL for primary prevention; <70 mg/dL for patients with CHD or diabetic patients with > or = 2 CHD risk factors. LDL-C is now calculated using the Isidoro calculation, which is a validated novel method providing better accuracy than the Friedewald equation in the estimation of LDL-C. Kenneth SS et al. CAMILO. 2013;310(19): 1179-8100 (http://education.Fileforce/faq/AEK706) Performed By: #### 1 0231, 7600 #### [facility] [address], [address] [place] [address] [employer] Hvac [employer] Instructor: Dutch Hi MD Cholesterol.total/C holesterol in HDL [Mass ratio] 3.9 {ratio} Normal <5.0 [facility] Comment on above: Order Comment: FASTI NG:NO FASTING: NO Performed By: #### 1 023, 7600 #### [facility] [address], [address] [place] [address] [employer] H[employer] Instructor: Dutch Hi MD NON HDL CHOLESTEROL 175 mg/dL (calc) High <130 [facility] Comment on above: Order Comment: FASTI NG:NO FASTING: NO Result Comment: For patients with diabetes plus 1 major ASCVD risk factor, treating to a non-HDL-C goal of <100 mg/dL (LDL-C of <70 mg/dL) is considered a therapeutic option. Performed By: #### 1 0231, 7600 #### [facility] [address], [address] [place] [address] [employer] H[employer] Instructor: Dutch Hi MD Triglyceride [Mass/Vol] 85 mg/dL Normal <150 [facility] Comment on above: Order Comment: FASTI NG:NO FASTING: NO Performed By: #### 1 023, 7600 #### [facility] [address], [address] [place] [address] [employer] Hvac [employer] Instructor: Dutch Hi MD Vital Signs Date Time Vital Sign Value Performing Clinician Arcelia sneed 10-21-2024 11:05-0400 Diastolic blood pressure 90 mm[Hg] Abel Cunningham [facility] 10-21-2024 11:05-0400 Mean blood pressure 122 mm[Hg] Abel Cunningham [facility] 10-21-2024 11:05-0400 Systolic blood pressure 186 mm[Hg] Abel Cunningham [facility] 10-21-2024 10:53-0400 Blood Pressure Location Abel Cunningham [facility] 10-21-2024 10:53-0400 Diastolic blood pressure 102 mm[Hg] Abel Cunningham [facility] 10-21-2024 10:53-0400 Heart rate 54 /min Abel Cunningham [facility] 10-21-2024 10:53-0400 Respiratory rate 18 /min Abel Cunningham [facility] 10-21-2024 10:53-0400 SaO2% (BldA) [Mass fraction] 99 % Abel Cunningham [facility] 10-21-2024 10:53-0400 Systolic blood pressure 175 mm[Hg] Abel Cunningham [facility] 06-09-2024 09:32-0500 Body height 176.5 cm Smile Work Phone: [facility] 06-09-2024 09:32-0500 Body mass index (BMI) [Ratio] 24.31 kg/m2 [employer] DO [facility] 06-09-2024 09:32-0500 Body temperature 97.9 [degF] Smile Work Phone: [facility] 06-09-2024 09:32-0500 Body weight 75.75 kg Homer Youssef DO [facility] 06-09-2024 09:32-0500 Diastolic blood pressure 74 mm[Hg] Homer Youssef DO Work Phone: [facility] 06-09-2024 09:32-0500 Heart rate 67 /min Homer Youssef DO [facility]: [facility] 06-09-2024 09:32-0500 Respiratory rate 18 /min Homer Youssef DO Work [facility]: [facility] 06-09-2024 09:32-0500 SaO2% (BldA) [Mass fraction] 99 % Homer Youssef DO Work Phone: [facility] 06-09-2024 09:32-0500 Systolic blood pressure 140 mm[Hg] Homer Youssef DO Work Phone: [facility] Encounters Encounter Date Encounter Type Care Provider Facility Start: 02-17-2025 End: 02-17-2025 ambulatory Abel Jaime Parkerle Facility[facility] Start: 01-27-2025 End: 01-27-2025 ambulatory Alla Haroon Facility:[facility] Start: 10-21-2024 End: 10-21-2024 ambulatory SELF REFERRAL Facility:[facility] Start: 10-21-2024 End: 10-21-2024 Patient encounter procedure Abel Dunaway [facility] Start: 09-09-2024 End: 09-09-2024 Refill Homer Youssef DO Work Phone: [facility] Comment on above: Paroxysmal atrial fi brillation ([facility]) Start: 06-09-2024 End: 06-09-2024 ambulatory HOMER YOUSSEF [facility] Start: 06-09-2024 End: 06-09-2024 Patient encounter procedure Homer Youssef DO Work Phone: [facility] Comment on above: Welcome to Medicare preventive visit (Primary Dx); Screening for depression; Screening for heart disease; Hair loss; Paroxysmal atrial fibrillation ([facility] Start: 06-09-2024 End: 06-09-2024 Patient encounter status Homer Youssef DO Work Phone: [facility] Work Phone: Start: 06-09-2024 End: 06-09-2024 ambulatory HOMER Cesilia CARMONANICK [facility] Start: 06-09-2024 Encounter for genera l adult medical examination without abnormal findings HOMER CARMONANICK [facility] Start: 03-17-2024 End: 03-17-2024 Refill [facility]oussef DO [facility] Comment on above: Paroxysmal atrial fi brillation ([facility] Start: 09-18-2023 Refill Homer Cesilia hamm DO Work Phone: [facility] Comment on above: Paroxysmal atrial fi brillation [place] Start: 08-11-2022 End: 08-12-[address] RIVERA Cesilia CARMONAARACELINICK Facility: Procedures Date Procedure Procedure Detail Performing Clinician Start: 06-09-2024 Adult depression scr eening assessment Homer Youssef DO Work Phone: Start: 12-11-2023 Mammography Homer davis DO Work Phone: Start: 10-06-2022 Adult depression scr eening assessment Homer Youssef DO Work Phone: Start: 08-11-2022 Mammography Homer davis DO Work Phone: Plan of Treatment Date Care Activity Detail Author Start: 06-09-2025 Adult BMI Screening Adult BMI Screen ing [facility] Start: 06-09-2025 Depression Screening Depression Scre ening [facility] Start: 06-09-2025 Fall Risk Screening Fall Risk Screen ing [facility] Start: 06-09-2025 Tobacco Screening Tobacco Screening [facility] Start: 02-27-2025 Screening for malign ant neoplasm of colon Colonoscopy [facility] Comment on above: Postponed from 06/10 (Not Indicated) Start: 12-10-2024 Screening for malign ant neoplasm of breast Mammogram [facility] Start: 09-26-2024 Influenza vaccination Influenza Vacc ine [facility] Comment on above: Postponed from 02/27 (Patient Refused) Start: 06-29-2024 Administration of varicella zoster vaccine Zoster (Shingles) Vaccine (1 of 2) [facility] Comment on above: Postponed from 06/10 (Patient Refused) Start: 02-28-2024 COVID-19 Vaccine ( season) COVID-19 Vaccine () [facility] Start: 02-28-2024 COVID-19 Vaccine ( season) COVID-19 Vaccine () [facility] Start: 02-28-2024 Influenza vaccination Influenza Vacc ine [facility] Start: 10-07-2023 Adult BMI Screening Adult BMI Screen ing [facility] Start: 10-07-2023 Depression Screening Depression Scre ening [facility] Start: 10-07-2023 Tobacco Screening Tobacco Screening [facility] Start: 08-11-2023 Screening for malign ant neoplasm of breast Mammogram [facility] Start: 02-27-2023 COVID-19 Vaccine ( season) COVID-19 Vaccine ( season) [facility] Start: 02-27-2023 Influenza vaccination Influenza Vacc ine [facility] Start: 1978 Administration of varicella zoster vaccine Zoster (Shingles) Vaccine (1 of 2) [facility] Start: 1978 DTaP,Tdap and Td Vac cines (1 - Tdap) DTaP,Tdap and Td Vaccines (1 - Tdap) [facility] End: 06-09-2025 Comprehensive metabolic 2000 panel - Serum or Plasma Comprehensive metabolic panel Lab Routine Screening for heart disease 1 Occurrences starting 06/09/2024 until 06/09/2025 [employer] Work Phone: Comment on above: 1 Occurrences starti ng 06/09/2024 until 06/09/2025 End: 06-09-2025 Lipid panel Lipid panel Lab Routine Screening for heart disease 1 Occurrences starting 06/09/2024 until 06/09/2025 [facility] Comment on above: 1 Occurrences starti ng 06/09/2024 until 06/09/2025 End: 06-09-2025 TSH with Reflex TSH with Reflex Lab Routine Hair loss 1 Occurrences starting 06/09/2024 until 06/09/2025 [facility] Comment on above: 1 Occurrences starti ng 06/09/2024 until 06/09/2025 Immunizations Immunization Date Immunization Notes Care Provider June huntley 09-03-2020 COVID-19 Vaccine, vector-nr, rS-Ad26, PF, 0.5mL Homer Furlong DO Work Phone: [facility] 08-27-2020 COVID-19 Vaccine, vector-nr, rS-Ad26, PF, 0.5mL Homer Furlong DO Work Phone: [facility] Payers Date Payer Category Payer Medicare [id number] 2024 Medicare [id number] 2024 Unknown [id number] 2024 Unknown [id number] 2017 Commercial Managed C are - POS [employer] [id number] 2017 Private Health Insurance JAYJAY RO POS II [id number] 2017-Present [phone] [address] [place] [address] [id number] 1959 Private Health Insurance [id number] 1959 Unknown [id number] 1959 Unknown [id number] 1959 Unknown [id number] 1959 Unknown [id number] 1959 Unknown [id number] 1959 Unknown [id number] 1959 Unknown [id number] Social History Date Type Detail Facility Start: 10-06-2022 End: 10-21-2024 Tobacco smoking status INIS Never smoked tobacco [facility] Start: 10-06-2022 Tobacco use and exposure Smoke less tobacco non-user [facility] Start: 10-06-2022 End: 06-09-2024 Alcohol intake Ex-drinker (finding) [facility] Start: 10-06-2022 End: 06-09-2024 History of Social function [facility] Start: 10-06-2022 End: 06-09-2024 Social connection and isolation panel [facility] Do you belong to any clubs or organizations such as anabaptism groups, unions, fraternal or athletic groups, or school groups? Yes [facility] Are you now , , , , never or living with a partner? [facility] How often to you hav e a drink containing alcohol? Never [facility] How many standard dr inks containing alcohol do you have on a typical day? Patient does not drink [facility] Do you feel stress - tense, restless, nervous, or anxious, or unable to sleep at night because your mind is troubled all the time - these days [OSQ] Not at all [facility] Start: 1960 Sex Assigned At Not on file [facility] Has the [employer] threatened to shut off services in your home in past 12Mo No [facility] Start: 02-01-2015 Sex Female (finding) [facility] Sexual Orientation [facility] Functional Status Date Assessment Result Facility 10-21-2024 Functional Status N/A [facility] Clinical Notes 09-18-2023 to 10-21-2024 Homer Carmonaryan, DO - 06/09/2024 9:30 AM ESTTelephone Encounter - Homer Carmonaryan, DO - 03/17/2024 12:44 AM EDTTelephone Encounter - Homer Youssef, DO - 03/17/2024 12:44 AM EDT Note Date & Type Note Facility 10-21-2024 Hospital Discharg e instructions Patient Education 10/21/2024 11:27:12 Atrial Fibrillation, [id number] Atrial Fibrillation Atrial fibrillation (AFib) is a type of heartbeat that is irregular or fast. If you have AFib, your heart beats without any order. This makes it hard for your heart to pump blood in a normal way. AFib may come and go, or it may become a long-lasting problem. If AFib is not treated, it can put you at higher risk for stroke, heart failure, and other heart problems. What are the causes? AFib may be caused by diseases that damage the heart's electrical system. They include: High blood pressure. Heart failure. Heart valve diseases. Heart surgery. Diabetes. Thyroid disease. Kidney disease. Lung diseases, such as pneumonia or COPD. Sleep apnea. Sometimes the cause is not known. What increases the risk? You are more likely to develop AFib if: You are older. You exercise often and very hard. You have a family history of AFib. You are male. You are . You are overweight. You smoke. You drink a lot of alcohol. What are the signs or symptoms? Common symptoms of this condition include: A feeling that your heart is beating very fast. Chest pain or discomfort. Feeling short of breath. Suddenly feeling light-headed or weak. Getting tired easily during activity. Fainting. Sweating. In some cases, there are no symptoms. How is this treated? Medicines to: ?Prevent blood clots. ?Treat heart rate or heart rhythm problems. Using devices, such as a pacemaker, to correct heart rhythm problems. Doing surgery to remove the part of the heart that sends bad signals. Closing an area where clots can form in the heart (left atrial appendage). In some cases, your doctor will treat other underlying conditions. Follow these instructions at home: Medicines Take eepl-rpc-mctiufb and prescription medicines only as told by your doctor. Do not take any new medicines without first talking to your doctor. If you are taking blood thinners: ?Talk with your doctor before taking aspirin or NSAIDs, such as ibuprofen. ?Take your medicines as told. Take them at the same time each day. ?Do not do things that could hurt or bruise you. Be careful to avoid falls. ?Wear an alert bracelet or carry a card that says you take blood thinners. Lifestyle Do not smoke or use any products that contain nicotine or tobacco. If you need help quitting, ask your doctor. Eat heart-healthy foods. Talk with your doctor about the right eating plan for you. Exercise regularly as told by your doctor. Do not drink alcohol. Lose weight if you are overweight. General instructions If you have sleep apnea, treat it as told by your doctor. Do not use diet pills unless your doctor says they are safe for you. Diet pills may make heart problems worse. Keep all follow-up visits. Your doctor will check your heart rate and rhythm regularly. Contact a doctor if: You notice a change in the speed, rhythm, or strength of your heartbeat. You are taking a blood-thinning medicine and you get more bruising. You get tired more easily when you move or exercise. You have a sudden change in weight. Get help right away if: You have pain in your chest. You have trouble breathing. You have side effects of blood thinners, such as blood in your vomit, poop (stool), or pee (urine), or bleeding that cannot stop. You have any signs of a stroke. BE FAST is an easy way to remember the main warning signs: ?B - Balance. Dizziness, sudden trouble walking, or loss of balance. ?E - Eyes. Trouble seeing or a change in how you see. ?F - Face. Sudden weakness or loss of feeling in the face. The face or eyelid may droop on one side. ?A - Arms.Weakness or loss of feeling in an arm. This happens suddenly and usually on one side of the body. ?S - Speech. Sudden trouble speaking, slurred speech, or trouble understanding what people say. ?T - Time.Time to call emergency services. Write down what time symptoms started. You have other signs of a stroke, such as: ?A sudden, very bad headache with no known cause. ?Feeling like you may vomit (nausea). ?Vomiting. ?A seizure. These symptoms may be an emergency. Get help right away. Call 911. Do not wait to see if the symptoms will go away. Do not drive yourself to the hospital. This information is not intended to replace advice given to you by your health care provider. Make sure you discuss any questions you have with your health care provider. Document Revised: 03/04/2023 Document Reviewed: 03/04/2023 [employer] Patient Education 2023 [employer]. Follow Up Care 10/14/2024 13:44:00 With:Emelyn CANTU, Abel W, CAR Address: [address] [place] [address]. [place] [address]- When:3 months [facility] 10-21-2024 Note Patient Education - Text Cardiovascular Atrial Fibrillation Atrial fibrillation (AFib) is a type of heartbeat that is irregular or fast. If you have AFib, your heart beats without any order. This makes it hard for your heart to pump blood in a normal way. AFib may come and go, or it may become a long-lasting problem. If AFib is not treated, it can put you at higher risk for stroke, heart failure, and other heart problems. What are the causes? AFib may be caused by diseases that damage the heart's electrical system. They include: ??? High blood pressure. ??? Heart failure. ??? Heart valve diseases. ??? Heart surgery. ??? Diabetes. ??? Thyroid disease. ??? Kidney disease. ??? Lung diseases, such as pneumonia or COPD. ??? Sleep apnea. Sometimes the cause is not known. What increases the risk? You are more likely to develop AFib if: ??? You are older. ??? You exercise often and very hard. ??? You have a family history of AFib. ??? You are male. ??? You are . ??? You are overweight. ??? You smoke. ??? You drink a lot of alcohol. What are the signs or symptoms? Common symptoms of this condition include: ??? A feeling that your heart is beating very fast. ??? Chest pain or discomfort. ??? Feeling short of breath. ??? Suddenly feeling light-headed or weak. ??? Getting tired easily during activity. ??? Fainting. ??? Sweating. In some cases, there are no symptoms. How is this treated? Medicines to: ? Prevent blood clots. ? Treat heart rate or heart rhythm problems. ??? Using devices, such as a pacemaker, to correct heart rhythm problems. ??? Doing surgery to remove the part of the heart that sends bad signals. ??? Closing an area where clots can form in the heart (left atrial appendage). In some cases, your doctor will treat other underlying conditions. Follow these instructions at home: Medicines ??? Take iteu-ouj-qkvbxpf and prescription medicines only as told by your doctor. ??? Do not take any new medicines without first talking to your doctor. ??? If you are taking blood thinners: ? Talk with your doctor before taking aspirin or NSAIDs, such as ibuprofen. ? Take your medicines as told. Take them at the same time each day. ? Do not do things that could hurt or bruise you. Be careful to avoid falls. ? Wear an alert bracelet or carry a card that says you take blood thinners. Lifestyle ??? Do not smoke or use any products that contain nicotine or tobacco. If you need help quitting, ask your doctor. ??? Eat heart-healthy foods. Talk with your doctor about the right eating plan for you. ??? Exercise regularly as told by your doctor. ??? Do not drink alcohol. ??? Lose weight if you are overweight. General instructions ??? If you have sleep apnea, treat it as told by your doctor. ??? Do not use diet pills unless your doctor says they are safe for you. Diet pills may make heart problems worse. ??? Keep all follow-up visits. Your doctor will check your heart rate and rhythm regularly. Contact a doctor if: ??? You notice a change in the speed, rhythm, or strength of your heartbeat. ??? You are taking a blood-thinning medicine and you get more bruising. ??? You get tired more easily when you move or exercise. ??? You have a sudden change in weight. Get help right away if: ??? You have pain in your chest. ??? You have trouble breathing. ??? You have side effects of blood thinners, such as blood in your vomit, poop (stool), or pee (urine), or bleeding that cannot stop. ??? You have any signs of a stroke. BE FAST is an easy way to remember the main warning signs: ? B - Balance. Dizziness, sudden trouble walking, or loss of balance. ? E - Eyes. Trouble seeing or a change in how you see. ? F - Face. Sudden weakness or loss of feeling in the face. The face or eyelid may droop on one side. ? A - Arms.Weakness or loss of feeling in an arm. This happens suddenly and usually on one side of the body. ? S - Speech. Sudden trouble speaking, slurred speech, or trouble understanding what people say. ? T - Time.Time to call emergency services. Write down what time symptoms started. ??? You have other signs of a stroke, such as: ? A sudden, very bad headache with no known cause. ? Feeling like you may vomit (nausea). ? Vomiting. ? A seizure. These symptoms may be an emergency. Get help right away. Call 911. ??? Do not wait to see if the symptoms will go away. ??? Do not drive yourself to the hospital. This information is not intended to replace advice given to you by your health care provider. Make sure you discuss any questions you have with your health care provider. Document Revised: 03/04/2023 Document Reviewed: 03/04/2023 [employer] Patient Education ? 2023 [employer]. [facility] 06-09-2024 History of Presen t illness Narrative Subjective Arianne Britt is a 63 y.o. female who presents for a Welcome to Medicare visit. She has episodes of atrial fibrillation about once a month. They last about 12 hours. They resolved spontaneously. She does take an extra dose of metoprolol when it does occur. She takes a daily aspirin. Otherwise she feels fine. She exercises regularly. She eats healthy. She does note some hair loss. Her mom and her sister take thyroid medications. The following portions of the patient's history were reviewed and updated as appropriate: Health Risk Assessment, allergies, past medical history, past surgical history, social history, family history, and immunization history Vitals: Vitals: 06/09/24 0932 BP: 140/74 Pulse: 67 Resp: 18 Temp: 36.6 C (97.9 F) SpO2: 99% Body mass index is 24.31 kg/m . History: Patient Active Problem List Diagnosis Date Noted Paroxysmal atrial fibrillation ([facility]) 10/06/2022 Basal cell carcinoma 10/17/2021 Hx of cone biopsy of cervix 08/28/2019 Pelvic congestion syndrome 06/07/2012 Past Medical History: Diagnosis Date A-fib ([facility]) Past Surgical History: Procedure Laterality Date APPENDECTOMY SECTION Family History Problem Relation Age of Onset Breast cancer Mother from necrotizing fasciitis at age 89-possible colon CA Esophageal cancer Father Coronary artery disease Father Atrial fibrillation Brother Atrial fibrillation Brother Vasculitis Brother autoimmune Social History Tobacco Use Smoking status: Never Smokeless tobacco: Never Substance Use Topics Alcohol use: Not Currently Allergies: Allergies Allergen Reactions Codeine Nausea And Vomiting and Vomiting Current Outpatient Medications Medication Sig Dispense Refill aspirin 325 mg tablet Take 1 tablet (325 mg total) by mouth. metoprolol tartrate (LOPRESSOR) 50 mg tablet TAKE 1 TABLET (50 MG TOTAL) BY MOUTH IN THE MORNING AND 1 TABLET (50 MG TOTAL) BEFORE BEDTIME 180 tablet 1 multivit-min/ferrous fumarate (MULTI VITAMIN ORAL) Take by mouth daily. No current facility-administered medications for this visit. Immunization History Administered Date(s) Administered COVID-19 Vaccine, vector-nr, [id number], PF, 0.5mL 08/27/2020, 09/03/2020 Functional Ability/Safety Screening 1. Was the patient's timed Get Up & Go test unsteady or longer than 30 seconds? No 2. Does the patient need help with the phone, transportation, shopping, preparing meals, housework, laundry, medications or managing money? No 3. Does the patient's home have rugs in the hallway, lack grab bars in the bathroom, lack handrails on the stairs or have poor lighting? Does have rugs; all else ok 4. Have you noticed any hearing difficulties? sometimes Hearing and/or Vision Screening: Pt deferred. Just had eye exam Cognitive Screening; Clock Drawing Test: Not Assessed patient declined evaluation Advanced Directives: Living Will: Yes DPA for Health Care: Yes Review of Systems: Review of Systems Constitutional: Negative. HENT: Negative. Eyes: Negative. Respiratory: Negative. Cardiovascular: Positive for palpitations. Gastrointestinal: Negative. Endocrine: Negative. Genitourinary: Negative. Musculoskeletal: Negative. Skin: Negative. Allergic/Immunologic: Negative. Neurological: Negative. Hematological: Negative. Psychiatric/Behavioral: Negative. Objective Physical Exam Vitals reviewed. Exam conducted with a system development engineer present (Marylin Herrera MS III). Constitutional: General: She is not in acute distress. Appearance: Normal appearance. She is normal weight. She is not ill-appearing. HENT: Head: Normocephalic. Right Ear: Tympanic membrane, ear canal and external ear normal. Left Ear: Tympanic membrane, ear canal and external ear normal. Nose: Nose normal. Mouth/Throat: Lips: [place]. Mouth: Mucous membranes are moist. Dentition: Normal dentition. Pharynx: Oropharynx is clear. Uvula midline. No pharyngeal swelling or oropharyngeal exudate. Eyes: General: No scleral icterus. Extraocular Movements: Extraocular movements intact. Conjunctiva/sclera: Conjunctivae normal. Cardiovascular: Rate and Rhythm: Normal rate and regular rhythm. Pulses: Normal pulses. Heart sounds: Normal heart sounds. No murmur heard. Pulmonary: Effort: Pulmonary effort is normal. No respiratory distress. Breath sounds: Normal breath sounds. No wheezing, rhonchi or rales. Abdominal: General: Bowel sounds are normal. There is no distension. Palpations: Abdomen is soft. There is no mass. Tenderness: There is no abdominal tenderness. There is no right CVA tenderness, left CVA tenderness, guarding or rebound. Hernia: No hernia is present. Musculoskeletal: Cervical back: Neck supple. No rigidity or tenderness. Right lower leg: No edema. Left lower leg: No edema. Skin: General: Skin is warm and dry. Findings: Lesion (Benign appearing lesions on back) present. Comments: Sees Dermatology yearly for skin checks Neurological: General: No focal deficit present. Mental Status: She is alert and oriented to person, place, and time. Cranial Nerves: Cranial nerves 2-12 are intact. Gait: Gait is intact. Psychiatric: Attention and Perception: Attention and perception normal. Mood and Affect: Mood and affect normal. Speech: Speech normal. Behavior: Behavior normal. Behavior is cooperative. Thought Content: Thought content normal. Cognition and Memory: Cognition and memory normal. Judgment: Judgment normal. Assessment/Plan Encounter Diagnoses Name Primary? Welcome to Medicare preventive visit Yes Screening for depression Screening for heart disease Hair loss Paroxysmal atrial fibrillation ([facility]) Health maintenance discussed. She declines vaccines at this time. She will think about getting the shingles vaccine. Depression screen was negative. At least 3 minute spent administering and discussing. She declined cognitive evaluation. She has advanced directives in place. Will check CMP and lipids. Will also check TSH for the hair loss. We discussed her paroxysmal atrial fibrillation. She has a CHADS-VASc score of 3 as of tomorrow when she turns 64. Risk of stroke yearly is 3.2%. Anticoagulation is recommended but she declines. Risk of stroke was discussed. Blood pressure is borderline high. I encouraged her to check her blood pressure at home. Goal is less than 130/80. documented in this encounter [facility] 03-17-2024 Miscellaneous Notes Rx sent in. She is due for her annual wellness anytime documented in this encounter [facility] 03-17-2024 Telephone encounter Note Rx sent in. She is due for her annual wellness anytime [facility] 09-18-2023 Miscellaneous Notes Rx sent in. She is due for her yearly wellness after October 06 documented in this encounter [facility] 09-18-2023 Telephone encounter Note Rx sent in. She is due for her yearly wellness after October 06 [facility] Evaluation + Plan note Future Appointments Appointment Date:01/31/2025 09:30:00 AM Scheduled Provider:Abel Dunaway MD Location:[facility]iology [facility] Appointment Type:Cardiology Follow Up ([facility]) [facility] Evaluation note Diagnosis Paroxysmal atrial fibrillation (CMS-HCC) Atrial fibrillation [facility] Welcome to Medicare preventive visit- Primary Screening for depression Screening for heart disease Screening for other and unspecified cardiovascular conditions Hair loss Unspecified alopecia Paroxysmal atrial fibrillation ([facility]) Atrial fibrillation [facility] Diagnosis Paroxysmal atrial fibrillation (CMS-HCC) Atrial fibrillation [facility] Narrative No data available for this section [facility] InstructionsNot on filedocumented in this encounter [facility] filedocumented in this [facility] No data available for this section [facility] Summary Purpose Family History No Family History Records FoundNo Family History Records FoundNo Family History Records FoundNo Family History Records Found No data available for this section No Family History Records Found Advance Directives No Advanced Directives Records FoundNo Advanced Directives Records FoundNo Advanced Directives Records FoundNo Advanced Directives Records FoundNo Advanced Directives Records Found Additional Source Comments INFORMATION SOURCE (unrecogn ized section and content) DATE CREATED AUTHOR 07/19/2021 [facility] DATE CREATED AUTHOR AUTHOR'S ORGANIZ ATION 08/16/2022 [facility] DATE CREATED AUTHOR AUTHOR'S ORGANIZ ATION 06/12/2024 [facility] DATE CREATED AUTHOR AUTHOR'S ORGANIZ ATION 06/12/2024 [facility] DATE CREATED AUTHOR AUTHOR'S ORGANIZ ATION 02/24/2025 [facility] Reason for Visit (unrecogniz ed section and content) Reason Comments Med Refill Reason Comments Annual Exam Care Teams (unrecognized sec tion and content) 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 Relationship Specialty Start Date End Date Homer Youssef DO [address], [address] [place] [address] PCP - General Family Medicine 06/26/22 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 This clinical summary was aggregated from multiple sources. Caution should be exercised in using it in the provision of clinical care. This summary normalizes information from multiple sources, and as a consequence, information in this document may materially change the coding, format and clinical context of patient data. In addition, data may be omitted in some cases. CLINICAL DECISIONS SHOULD BE BASED ON THE PRIMARY CLINICAL RECORDS. [facility]. provides no warranty or guarantee of the accuracy or completeness of information in this document.
== END 2025-03-01 09:30 | disposition home or self-care (01) ==
PROVIDERS: PCP Family Medicine; Visit Provider Family Medicine
DX: Z12.31 Encounter for screening mammogram for malignant neoplasm of breast (principal); Z80.3 Family history of malignant neoplasm of breast
CPT/HCPCS: 77063; 77067